=== PATIENT | male | born 1985 | race Two or more races ===

== ENCOUNTER 2017-01-10 23:03 | Emergency (ER) | payer OTHER ==
[2017-01-10] MEDS ORDERED: KETOROLAC TROMETHAMINE 60 MG/2 ML VIAL ONE (23:49)
[2017-01-11] MEDS ORDERED: IBUPROFEN 800 MG TABLET ONE (00:01)
== END 2017-01-11 00:33 | disposition home or self-care (01) ==
LOC: ED 23:03
DX: G47.00 Insomnia, unspecified (principal); R51 Headache; F15.10 Other stimulant abuse, uncomplicated
CPT/HCPCS: 99283 ×2; A9270